=== PATIENT | male | born 1975 | race Caucasian/White ===

== ENCOUNTER 2020-06-27 14:33 | Emergency (ER) | payer OTHER ==
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
[2020-06-27 15:00] LABS: BASOPHILS % (AUTO) 0.7 %; EOSINOPHILS # (AUTO) 0.3 10^3/uL (0.0-0.7); EOSINOPHILS % (AUTO) 5.7 %; HCT - HEMATOCRIT 43.3 % (42.0-52.0); HGB - HEMOGLOBIN 14.7 g/dL (14.0-18.0); LYMPHOCYTES # (AUTO) 2.5 10^3/uL (1.5-3.5); LYMPHOCYTES % (AUTO) 45.3 %; MEAN CORPUSCULAR HEMOGLOBIN 31.3 pg (27.0-31.0); MEAN CORPUSCULAR HGB CONC 33.9 g/dL (32.0-36.0); MEAN CORPUSCULAR VOLUME 92.1 fL (80.0-94.0); MONOCYTES # (AUTO) 0.4 10^3/uL (0.0-1.0); MONOCYTES % (AUTO) 8.1 %; NEUTROPHILS # (AUTO) 2.2 10^3/uL (1.5-6.6); PLT - PLATELET COUNT 221 10^3/uL (130-450); RED CELL DISTRIBUTION WIDTH 11.7 % (12.0-15.0); WHITE BLOOD COUNT 5.4 x10^3/uL (4.8-10.8)
[2020-06-27 15:16] LABS: ALBUMIN 4.5 g/dL (3.2-5.5); ALBUMIN/GLOBULIN RATIO 1.6 (1.0-2.2); ALKALINE PHOSPHATASE 63 IU/L (42-121); ALT ALANINE AMINOTRANSFERASE 26 IU/L (10-60); AST ASPARTATE AMINOTRANSFERASE 21 IU/L (10-42); BILIRUBIN,TOTAL 0.5 mg/dL (0.2-1.0); BUN - BLOOD UREA NITROGEN 20 mg/dL (6-20); CALCIUM 9.4 mg/dL (8.5-10.3); CARBON DIOXIDE - CO2 28 mmol/L (21-32); CHLORIDE 101 mmol/L (101-111); CREATININE 0.8 mg/dL (0.6-1.2); ETOH - ETHANOL < 5.0 mg/dL; GFR - MDRD 105 (>89); GLUCOSE 133 mg/dL (70-100); POTASSIUM 3.7 mmol/L (3.5-5.0); SODIUM 136 mmol/L (135-145); TOTAL PROTEIN 7.4 g/dL (6.7-8.2)
--- NOTE | 2020-06-27 15:26 | CT Report ---
PROCEDURE: HEAD WO INDICATIONS: head injury TECHNIQUE: Noncontrast 4.5 mm thick angled axial sections acquired from the foramen magnum to the vertex. For r adiation dose reduction, the following was used: automated exposure control, adjustment of mA and/or kV according to patient size. COMPARISON: None. FINDINGS: Image quality: Excellent. CSF spaces: Basal cisterns are patent. No extra-axial fluid collections. Ventricles are normal in size and shape. Brain: No midline shift. No intracranial masses or hemorrhage. Pete-white matter interface is norm al. Skull and face: Calvarium and visualized facial bones are intact, without suspicious lesions. Sinuses: Visualized sinuses and mastoids are clear. IMPRESSION: No trauma found. Normal for age. Reviewed by: Tim Case MD on 06/27/2020 3:24 PM PDT Approved by: Tim Case MD on 06/27/2020 3:24 PM PDT Station ID: [id number]
--- OUTSIDE RECORDS SUMMARY | 2020-06-27 15:27 | EXTERNAL MEDICAL SUMMARY RPT | Continuity of Care Document ---
:1975 Demographics Phone Unavailable Preferred Language Latvian Marital Status Unknown Yazidism Affiliation Unknown Race Unknown Ethnic Group Unknown Author Organization [place] Address [address] [phone] Phone Care Team Providers Name Role Phone Justen Sloan Unavailable Unavailable Problems date description facility 20200601 Encounter for screening for lipoid diso [facility] 20200601 feller hand (current) use of non-steroida [facility] anti-inflammatories 20200601 [facility] Polyneuropathy, unspecified [facility] pitaz Medications date description facility 20200401 Acetaminophen 325 MG / Hydrocodone Rema rtrate 7.5 MG [facility] Oral Tablet 20200404 Amphetamine aspartate 7.5 MG / Amphetam ine Sulfate 7.5 [facility] MG / Dextroamphetamine saccharate 7.5 MG / Dextroamphetamine Sulfate 7.5 MG Oral Ta blet 20200404 24 HR Amphetamine aspartate 7.5 MG / Am [facility] Sulfate 7.5 MG / Dextroamphetamine sacch arate 7.5 MG / Dextroamphetamine Sulfate 7.5 MG Extende d Release Capsule 20200429 celecoxib 200 MG Oral Capsule [facility] ospital [id number] Sumatriptan 100 MG Oral Tablet [facility] [id number] Amphetamine aspartate 7.5 MG / Amphetam ine Sulfate 7.5 [facility] MG / Dextroamphetamine saccharate 7.5 MG / Dextroamphetamine Sulfate 7.5 MG Oral Ta blet [id number] Acetaminophen 325 MG / Hydrocodone Rema rtrate 7.5 MG [facility] Oral Tablet [id number] 24 HR Amphetamine aspartate 7.5 MG / Am [facility] Sulfate 7.5 MG / Dextroamphetamine sacch arate 7.5 MG / Dextroamphetamine Sulfate 7.5 MG Extende d Release Capsule [id number] Amphetamine aspartate 7.5 MG / Amphetam ine Sulfate 7.5 [facility] MG / Dextroamphetamine saccharate 7.5 MG / Dextroamphetamine Sulfate 7.5 MG Oral Ta blet [id number] 24 HR Amphetamine aspartate 7.5 MG / [facility] Sulfate 7.5 MG / Dextroamphetamine sacch arate 7.5 MG / Dextroamphetamine Sulfate 7.5 MG Extende d Release Capsule 20200601 Acetaminophen 325 MG / Hydrocodone Rema rtrate 7.5 MG [facility] Oral Tablet Procedures date description facility 20200601 General Physician [facility] Vital Signs date measurement value source 20200601 BMI 28.5 kg/m2 20200601 BP_diastolic 90 mm[Hg] 20200601 BP_systolic 140 mm[Hg] 20200601 heart_rate 80 /min 20200601 height_metric 190.5 cm 20200601 height_standard 75 in 20200601 weight_metric 46.94 kg 20200601 weight_standard 103.48 lb Social History date description facility [id number]
--- NOTE | 2020-06-27 15:28 | XRAY Report ---
PROCEDURE: Chest 2 View X-Ray INDICATIONS: syncope TECHNIQUE: 2 view(s) of the chest. COMPARISON: None. FINDINGS: Surgical changes and devices: None. Lungs and pleura: No pleural effusions or pneumothorax. Lungs are clear. Mediastinum: Mediastinal contours are normal. Heart size is normal. Bones and chest wall: No suspicious bony abnormalities. Soft tissues appear unremarkable. IMPRESSION: No acute cardiopulmonary disease process. Reviewed by: Homa Corbett MD, PhD on 06/27/2020 3:26 PM PDT Approved by: Homa Corbett MD, PhD on 06/27/2020 3:26 PM PDT Station ID: [id number]
[2020-06-27 16:05] VITALS: BP 135/87
== END 2020-06-27 16:10 | disposition home or self-care (01) ==
LOC: ED 14:33
DX: S06.0X1A Concussion with loss of consciousness of 30 minutes or less, initial encounter (principal); S00.83XA Contusion of other part of head, initial encounter; W18.39XA Other fall on same level, initial encounter; Y92.29 Other specified public building as the place of occurrence of the external cause; R55 Syncope and collapse
CPT/HCPCS: 36415; 80053; 80306; 80320; 84484; 85025; 93005; 99284

== ENCOUNTER 2020-12-04 07:10 | Emergency (ER) | payer SELFPAY ==
--- NOTE | 2020-12-04 07:32 | ED Physician Documentation ---
PD HPI LOWER EXT INJURY - Stated complaint Stated Complaint: RT FT INJ - Chief complaint Chief Complaint: Ext Problem - History obtained from History obtained from: Patient - History of Present Illness PD HPI LOW EXT INJURY LOCATION: Right, Ankle Type of injury: Fall, Twist Timing - onset: How many days ago (3) Timing - duration: Days (3 Days of pain in the ankle after a bimalleolar fracture. He was seen at [facility] and had posterior and stirrup splinting applied along with crutches. He states the ankle started hurting considerably more last night into today with sharp pain around the ankle medially especially.) Timing - details: Abrupt onset, Still present (worse pain since last night) Worsened by: Moving (any slight movement of the leg causes splint to feel like it is jabbing around ankle.) Associated symptoms: Swelling (feels swelling in ankle within the splint. Notes swelling and bruising of the toes.). No: Weakness, Numbness Recently seen: Emergency Dept ([facility] 3 days ago, splinted bimalleolar fracture without reduction needed. Referred to Doc Nieves. He called Saturday for appt and had not heard back as yet.) Review of Systems Constitutional: denies: Fever, Chills Nose: denies: Rhinorrhea / runny nose, Congestion Throat: denies: Sore throat Respiratory: denies: Cough Musculoskeletal: denies: Back pain PD PAST MEDICAL HISTORY - Present Medications Home Medications: Ambulatory Orders Medication Instructions Recorded Confirmed Doxycycline Hyclate 100 mg PO BID 7 Days #14 tab 12/04/20 Ibuprofen [Motrin] 600 mg PO TID PRN #25 tab 12/04/20 Oxycodone HCl/Acetaminophen 1 each PO Q6H PRN #18 tablet 12/04/20 [Percocet 5-325 mg Tablet] - Allergies Allergies/Adverse Reactions: Allergies Allergy/AdvReac Type Severity Reaction Status Date / Time Penicillins Allergy Anaphylaxis Verified 12/04/20 07:27 - Social History Does the pt smoke?: No Smoking Status: Never smoker Does the pt drink ETOH?: No Does the pt have substance abuse?: No PD ED PE NORMAL - Vitals Vital signs reviewed: Yes - General General: Alert and oriented X 3, Well developed/nourished, Other (appears in considerable pain for ankle/foot. He does have color and cap refill in toes. Toe movement is okay prior to splint removal. ) - Cardiac Cardiac: RRR, No murmur - Respiratory Respiratory: Clear bilaterally - Derm Derm: Normal color, Warm and dry - Extremities Extremities: No calf tenderness / cord, Other (Right lower leg with posterior and stirrup splint in place. Bottom of the splint has some dirt and wetness. The splint is removed and there are large serosanguineous filled blisters medial and lateral along the edge of the splint material. The padding material is removed. Noted redness of skin.). No: No edema (swelling with brusing around ankle and to top of foot. ) - Neuro Neuro: Alert and oriented X 3, No motor deficit, No sensory deficit Results - Vitals Vitals: Vital Signs - 24 hr 12/04/20 07:21 Temperature 38.1 C H Heart Rate 116 H Respiratory 19 Rate Blood Pressure 158/102 H O2 Saturation 98 Oxygen O2 Source Room air - Labs Labs: Microbiology 12/04/20 08:11 Wound Culture - Preliminary Leg - Right Laboratory Tests 12/04/20 12/04/20 08:10 08:10 WBC 9.3 RBC 3.91 L Hgb 12.4 L Hct 35.7 L MCV 91.3 MCH 31.7 H MCHC 34.7 RDW 12.0 Plt Count 243 MPV 9.8 Neut # (Auto) 6.7 H Lymph # (Auto) 1.4 L [place] # (Auto) 0.8 Eos # (Auto) 0.3 Baso # (Auto) 0.1 Absolute Nucleated RBC 0.00 Nucleated RBC % 0.0 Sodium 137 Potassium 3.7 Chloride 101 Carbon Dioxide 25 Anion Gap 11.0 BUN 20 Creatinine 0.8 Estimated GFR (MDRD) 105 Glucose 104 H Calcium 9.0 - Rads (name of study) right ankle Radiology: Prelim report reviewed (Trimalleolar fracture with good location.), See rad report Procedures - Splint (location) right ankle Splint applied by: Physician Type of splint: Other (Boot orthosis, chosen to have less rubbing onto the blisters and allow access anteriorly for some dressing change if needed.) Other: Patient tolerated well, No complications, Neurovascular intact PD MEDICAL DECISION MAKING - ED course Complexity details: re-evaluated patient (I remove the stirrup portion of the splint and he feels much better. The blisters now are evident with the dressing off. These were decompressed with the skin left on. Culture obtained. There is some redness of the skin to so concern for infection.), considered differential (The lining of the blisters medial and lateral is along the edge of the splinting material. Looks like it was rubbing. The bottom of the splint is dirty and moist likely consistent with some weightbearing. He states he was having to put his foot down at times for balance.), d/w otm consultant (I talked with [facility], who agrees with abx/dressing/resplinting, and Ortho office will get pt in Saturday or Saturday (tomorrow or next). ) Departure - Departure Disposition: Home, Self Care Clinical Impression: Skin infection Bimalleolar ankle fracture Qualifiers: Encounter type: subsequent encounter Fracture type: closed Laterality: right Fracture healing: with routine healing Qualified Code(s): S82.841D - Displaced bimalleolar fracture of right lower leg, subsequent encounter for closed fracture with routine healing Pressure ulcer with abrasion, blister, partial thickness skin loss involving epidermis and/or dermis Qualifiers: Pressure injury location: ankle Laterality: right Qualified Code(s): L89.512 - Pressure ulcer of right ankle, stage 2 Condition: Stable Record reviewed to determine appropriate education?: Yes Follow-Up: Sonny Nieves MD [Physician No Access] - Prescriptions: Doxycycline Hyclate 100 mg PO BID 7 Days #14 tab Ibuprofen [Motrin] 600 mg PO TID PRN #25 tab PRN Reason: Pain Oxycodone HCl/Acetaminophen [Percocet 5-325 mg Tablet] 1 each PO Q6H PRN #18 tablet PRN Reason: pain Comments: [facility] Keep the splint in place. Crutches and nonweightbearing to reduce pressure on the fracture. Call the orthopedics office tomorrow morning in the on-call orthopedist said they will get you into the office for follow-up on Saturday or Saturday. Meanwhile elevate and rest the ankle often. Doxycycline antibiotic twice daily for the next week. Ibuprofen 3 times a day with food for the next week as well. To that add Tylenol or Percocet if needed for pains. If the dressing does get very saturated and wet and there, you can remove the front of the splint gently and unwrap and redress the blisters and then replaced the strapping. Otherwise just leaving it until you are seen in the orthopedic office is fine as well. I chose this type of splint this time as there are less edges for causing pressure on the blisters and for allowing some access for dressing change. It does need to be treated like a cast though in that its left on.
[2020-12-04] MEDS ORDERED: KETOROLAC 30 MG/ML VIAL IVP STA (07:42)
[2020-12-04] MEDS ORDERED: cefTRIAXone 1 GM VIAL IVP STA (07:42)
[2020-12-04] MEDS ORDERED: HYDROmorphone 1 MG/ML CARPUJECT IVP STA (07:42)
[2020-12-04 08:19] LABS: BASOPHILS # (AUTO) 0.1 10^3/uL (0.0-0.1); BASOPHILS % (AUTO) 0.6 %; EOSINOPHILS # (AUTO) 0.3 10^3/uL (0.0-0.7); EOSINOPHILS % (AUTO) 2.9 %; HCT - HEMATOCRIT 35.7 % (42.0-52.0); HGB - HEMOGLOBIN 12.4 g/dL (14.0-18.0); LYMPHOCYTES # (AUTO) 1.4 10^3/uL (1.5-3.5); MEAN CORPUSCULAR HEMOGLOBIN 31.7 pg (27.0-31.0); MEAN CORPUSCULAR HGB CONC 34.7 g/dL (32.0-36.0); MEAN CORPUSCULAR VOLUME 91.3 fL (80.0-94.0); MEAN PLATELET VOLUME 9.8 fL (7.4-11.4); MONOCYTES # (AUTO) 0.8 10^3/uL (0.0-1.0); MONOCYTES % (AUTO) 8.8 %; NEUTROPHILS # (AUTO) 6.7 10^3/uL (1.5-6.6); NEUTROPHILS % (AUTO) 72.5 %; PLT - PLATELET COUNT 243 10^3/uL (130-450); RED BLOOD COUNT 3.91 10^6/uL (4.70-6.10); WHITE BLOOD COUNT 9.3 x10^3/uL (4.8-10.8)
--- NOTE | 2020-12-04 08:26 | XRAY Report ---
PROCEDURE: Ankle 2 View RT INDICATIONS: recent ankle fracture TECHNIQUE: 2 views of the ankle were acquired. COMPARISON: None FINDINGS: Bones: Mildly displaced, subacute appearing fractures are seen of the medial and lateral malleoli, as well as the posterior malleolus. No significant widening of ankle mortise can be seen. The talar dome demonstrates an unremarkable ap pearance. An accessory ossicle is seen, an os trigonum. The overlying casting material limits evaluation of fine detail. Soft tissues: Generalized soft tissue swelling can be seen. IMPRESSION: Mildly displaced trimalleolar fracture. Reviewed by: Kev Zhao MD on 12/04/2020 7:24 AM [place] Approved by: Kev Zhao MD on 12/04/2020 7:24 AM [place] Station ID: [id number]
[2020-12-04 08:27] LABS: CREATININE 0.8 mg/dL (0.6-1.2); POTASSIUM 3.7 mmol/L (3.5-5.0)
[2020-12-04] MEDS ORDERED: DOXYCYCLINE 100 MG TABLET PO STA (08:53)
[2020-12-04 09:46] VITALS: BP 140/79
--- NOTE | 2020-12-06 16:39 | ED Physician Documentation ---
ED Addendum - Addendum Addendum: 12/06/20 16:38 Cultures reviewed, case discussed by phone with the orthopedist who saw him today in follow-up and he was also referred to [place] ED where he had a debridement. They recultured him today. Given that the predominant growth at this point is staph, I think doxycycline is fine. They recultured it as well and he has good follow-up.
== END 2020-12-04 09:46 | disposition home or self-care (01) ==
LOC: ED 07:10
DX: S82.841D Displaced bimalleolar fracture of right lower leg, subsequent encounter for closed fracture with routine healing (principal); L89.512 Pressure ulcer of right ankle, stage 2; L08.89 Other specified local infections of the skin and subcutaneous tissue; B95.8 Unspecified staphylococcus as the cause of diseases classified elsewhere
CPT/HCPCS: 29515; 36415; 73600; 80048; 81599; 85025; 87070; 87077; 87181; 87205; 96374; 99284; A9270; J1170